=== PATIENT | male | born 1990 | race Asian ===

== ENCOUNTER 2025-02-15 02:32 | Emergency (ER) | payer SELFPAY ==
[~2025-02-15] VITALS: Ht 165.1 cm; Wt 53.0 kg
[2025-02-15 02:43] VITALS: TEMP 36.7; O2SAT 99
[2025-02-15 03:24] VITALS: BP 111/75; PULSE 84; RESP 16; O2SAT 98
[2025-02-15] MEDS ORDERED: IBUP-2029 MT (03:36)
[2025-02-15] MEDS ORDERED: SULF1TAB48 MT (03:36)
[2025-02-15] MEDS: SULFAMETHOXAZOLE/TRIMETHOPRIM 800/160MG TABLET PO ONE (03:49)
[2025-02-15] MEDS: TETANUS, DIPHTHERIA, PERTUSSIS VAC/PF 0.5ML (>10YR OLD) IM ONE (03:50)
== END 2025-02-15 03:56 | disposition home or self-care (01) ==
LOC: ER 02:32
DX: L03.313 Cellulitis of chest wall (principal)
CPT/HCPCS: 90715; 90471; 99283; Z7610